=== PATIENT | male | born 2000 | race Caucasian/White ===

== ENCOUNTER 2022-07-03 09:20 | Emergency (ER) | payer BC, SELFPAY ==
--- NOTE | ~2022-07-03 | XR_ITS ---
EXAMINATION: XR tibia fibula RT 2V INDICATION: Right leg pain TECHNIQUE: Two views of the right tibia and fibula are obtained on three radiographs COMPARISON: 10/08/2018 FINDINGS: Bone alignment is normal. There is mild osseous irregularity of the medial malleolus. There is distal soft tissue swelling of the leg and ankle. IMPRESSION: 1. Mild osseous irregularity of the medial malleolus which could reflect acute versus chronic injury. Dedicated ankle radiographs are recommended. Reviewed, dictated and finalized at location A.
[2022-07-03 09:20] VITALS: BP 123/78; PULSE 78; RESP 16; TEMP 36.8; O2SAT 98
--- NOTE | 2022-07-03 09:29 | ED.LOWEXIN ---
HPI - Extremity Injury (Lower) General Chief Complaint: Extremity Injury, Lower Stated Complaint: right coleman injury Time Seen by Provider: 07/03/22 09:29 Source: patient Mode of arrival: ambulatory Limitations: no limitations History of Present Illness HPI Narrative: 22-year-old male presents to the ER after he hit his right coleman with a sledgehammer 3 days ago. He was hitting a metal following which the jess a jumped and hit his right lower coleman. He has bruising of right lower coleman. He is able to bear weight but has pain when he walks and stands up. No other injuries noted. patient had an ankle sprain 3 years ago for which she was on crutches for a prolonged period of time. MD complaint: leg injury Onset (ago): day(s) ( Three days ago) Type of Injury: blunt Place: work Severity: moderate Exacerbating factors: weight bearing Context: direct blow Associated symptoms: swelling Other symptoms: none Related Data Allergies Allergy/AdvReac Type Severity Reaction Status Date / Time No Known Allergies Allergy Mild Unverified 04/13/08 10:33 Review of Systems Review of Systems: All systems reviewed & are unremarkable except as noted in HPI and below Constitutional: Constitutional: Reports as per HPI and Reports no additional constitutional complaints Eyes: Eyes: Reports as per HPI and Reports no additional eye complaints ENT: Reports system reviewed and no additional complaints, except as documented and Reports as per HPI Cardiovascular: Cardiovascular: Reports as per HPI and Reports no additional cardiovascular complaints Respiratory: Respiratory: Reports as per HPI and Reports no additional respiratory complaints Gastrointestinal: Gastrointestinal: Reports as per HPI and Reports no additional gastrointestinal complaints Genitourinary: Genitourinary: Reports no additional male genitourinary complaints and Reports as per HPI Musculoskeletal: Musculoskeletal: Reports no additional musculoskeletal complaints and Reports as per HPI Comments: coleman pain/ coleman bruising with swelling Integumentary/Breasts: Comments: bruising right lower coleman Neurologic: Reports system reviewed and no additional complaints, except as documented and Reports as per HPI Psychiatric: Psychiatric: Reports no additional psychiatric complaints and Reports as per HPI Endocrine: Endocrine: Reports no additional endocrine complaints and Reports as per HPI Hematologic/Lymphatic: Hematologic/Lymphatic: Reports no additional hematologic/lymphatic complaints and Reports as per HPI Allergic/Immunologic: Allergic/Immunologic: Reports no additional allergic/immunologic complaints and Reports as per HPI Exam Const: General: healthy appearing and no acute distress Nutritional Appearance: well nourished Orientation/consciousness: patient oriented x3 Limitations: no limitations HENMT: Head: normal to inspection Ears: external ears normal Face/Nose/Sinus: Normal external nose present Face and sinus: normal facial exam Mouth: Yes Normal oral and palatal mucosa present Throat: posterior oropharynx normal Eyes: Conjunctivae: conjunctivae normal Pupils: Equal, round and reactive pupils present EOM: EOMs intact bilaterally Direct Ophthalmoscopy: no photophobia Neck: Neck: normal visual inspection, no lymphadenopathy and no meningeal signs Chest: Chest palpation & inspection: normal inspection of the chest Resp: Effort & Inspection: normal respiratory effort Auscultation: clear to auscultation bilaterally Cardio: Rate: regular rate Rhythm: regular rhythm GI: GI Palp: Yes Soft to palpation Auscultation: normal bowel sounds Skin: General skin exam: normal color Other: bruising and swelling right lower leg/ coleman Neuro: General: patient oriented x3, moves all extremities, no meningeal signs, no focal motor deficits and CN's II-XI intact bilaterally Cranial nerves: Yes Nystagmus not present Speech: normal speech Gait exam (Neuro):
[2022-07-03 10:53] VITALS: BP 126/80; PULSE 80; RESP 20; TEMP 36.6; O2SAT 100
== END 2022-07-03 10:58 | disposition home or self-care (01) ==
PROVIDERS: Emergency Provider Internal Medicine Critical Care Medicine
DX: S82.51XA Displaced fracture of medial malleolus of right tibia, initial encounter for closed fracture (principal); W22.8XXA Striking against or struck by other objects, initial encounter
CPT/HCPCS: 73590; 99283

== ENCOUNTER 2022-08-02 16:41 | Outpatient (RCR) | payer BC, SELFPAY ==
--- NOTE | 2022-08-02 18:08 | PTOPEVAL1 ---
Assessment and note entered by Jorge Figueroa Evaluation Information Assessment Status Evaluation Diagnosis left shoulder dislocation Onset 07/02/22 Subjective Information Pt. reports that he injured the left shoulder while prying a track back on a skid steer. He reports that he was able to relocate the shoulder himself. He reports that he waited but ended up going to the doctor the following week. He reports that he has had xray which revealed fluid around the shoulder. he reports that most pain is located on the front side of the left shoulder. He is right hand dominant. He has no prior hx of shoulder problems. he reports he is able to continue full duty work despite his pain. He reports that picking up his new born will increase his pain, as well as pushing up off the left arm to get off the ground. He reports that his goal is to decrease his pain. Reported Pain Level Pain Score 2: Self Report Assessment PT Clinical Summary Pt. is a 22 year old male who enters the clinic with left shoulder pain following dislocation. He presents with shoulder stiffness, weakness and pain. continued skilled PT is indicated in order to improve these areas to allow the pt. to be able to complete all IADL's with less intense pain. Plan of Care Interventions Electrical Stimulation,Hot Pack/Cold Pack,Manual Therapy,Neuro Re-education,Patient/Caregiver Educati,Therapeutic Activities,Therapeutic Exercise PT Services Indicated Yes Treatment Frequency and 2x/week x 8 visits Duration These treatments will address the objective and functional deficits as defined above. The patient will be advanced safely and appropriately in order for the patient to progress towards his/her prior level of function. Additional exercises will be introduced and as well as a comprehensive home exercise program upon discharge, if needed, ?to ensure carryover of functional gains achieved in the clinic. This treatment plan has been reviewed and agreement upon by the patient.
--- NOTE | 2022-08-02 18:09 | OPREHPOC ---
Outpatient Therapy Plan of Care This is a Multidisciplinary Plan of Care that may contain components documented by all disciplines (PT, OT, and ST.) PT Problem 1 PT Problem #1 Knowledge Deficit PT Goal 1 Goal Indpendent with a HEP addressing strength and mobility Target Visit 2 PT Problem 2 PT Problem #2 Impaired Strength PT Goal 1 Goal Presents with 5/5 ER strength at the left shoulder Target Visit 8 PT Problem 3 PT Problem #3 Impaired Range of Motion PT Goal 1 Goal Present with 90 degrees left shoulder ER AROM Target Visit 8 PT Problem 4 PT Problem #4 Impaired Functional Mobil PT Goal 1 Goal Perform all work related duties and overhead tasks without pain. Target Visit 8
--- NOTE | 2022-08-18 16:49 | PTOPDC ---
Assessment and note entered by JT File, PT Evaluation Information Assessment Status Discharge Diagnosis left shoulder dislocation Onset 07/02/22 Subjective Information patient reports he feels good today. he reports he has no pain, and he is ready for DC. Reported Pain Level Pain Score 0: Self Report Assessment PT Clinical Summary mr. duke has met all goals for skilled PT. he wishes to be done with therapy today. given his lack of pain, achievement of goals, and full return to work duties without limitations he will be DC'd from skilled PT services today. Plan of Care PT Services Indicated Yes
--- NOTE | 2022-08-18 16:49 | OPREHPOC ---
Outpatient Therapy Plan of Care This is a Multidisciplinary Plan of Care that may contain components documented by all disciplines (PT, OT, and ST.) PT Problem 1 PT Problem #1 Knowledge Deficit PT Goal 1 Goal Indpendent with a HEP addressing strength and mobility Target Visit 2 Progress Met PT Problem 2 PT Problem #2 Impaired Strength PT Goal 1 Goal Presents with 5/5 ER strength at the left shoulder Target Visit 8 Progress Met PT Problem 3 PT Problem #3 Impaired Range of Motion PT Goal 1 Goal Present with 90 degrees left shoulder ER AROM Target Visit 8 Progress Met PT Problem 4 PT Problem #4 Impaired Functional Mobil PT Goal 1 Goal Perform all work related duties and overhead tasks without pain. Target Visit 8 Progress Met
== END 2022-08-18 16:52 | disposition home or self-care (01) ==
LOC: CHSPT 16:41
PROVIDERS: Visit Provider Nurse Practitioner Family
DX: S43.005D Unspecified dislocation of left shoulder joint, subsequent encounter (principal)
CPT/HCPCS: 97014; 97110; 97161; G0283

== ENCOUNTER 2022-11-19 11:52 | Outpatient (CLI) | payer BC, SELFPAY ==
--- NOTE | ~2022-11-19 | XR_ITS ---
XR chest 2V DATE: 11/19/2022 12:19 INDICATION: Shortness of breath, cough. History of asthma. Smoker. TECHNIQUE: PA and lateral views COMPARISON: 12/14/2010 PA and lateral chest FINDINGS: There is patchy infiltrate in the left lower lobe and to a lesser extent right lower lung s uggesting bilateral pneumonia. Normal heart size. No hilar or mediastinal enlargement. No pulmonary vascular congestion or pleural effusion or pneumothorax. IMPRESSION: Patchy bilateral lower lung infiltrates, most prominent in the left lower lobe, suggestin g bilateral pneumonia Reviewed, dictated and finalized at location B. IMPRESSION: Patchy bilateral lower lung infiltrates, most prominent in the left lower lobe, suggesting bilateral pneumonia
[2022-11-19 12:09] LABS: Basophils Absolute Auto 0.04 K/mm3 (0.00-0.10); Basophils Percent Auto 0.3 % (0.0-1.0); Hematocrit 41.8 % (40.0-54.0); Hemoglobin 14.5 g/dL (14.0-18.0); Immature Granulocyte Absolute 0.06 K/mm3 (0.00-0.00); Immature Granulocyte Percent A 0.4 % (0.0-0.0); Lymphocytes Absolute Auto 1.04 K/mm3 (1.10-4.50); Lymphocytes Percent Auto 7.1 % (18.0-42.0); Mean Corpuscular HGB Conc 34.7 g/dL (32.0-36.0); Mean Corpuscular Hemoglobin 29.8 pg (27.0-31.0); Mean Platelet Volume 9.3 fl (8.7-11.0); Monocytes Absolute Auto 1.04 K/mm3 (0.10-0.90); Monocytes Percent Auto 7.1 % (2.0-11.0); Neutrophils Absolute Auto 12.4 K/mm3 (1.7-7.2); Neutrophils Percent Auto 85.1 % (50.0-70.0); Platelet Count Result 281 K/mm3 (150-420); Red Blood Count 4.86 M/mm3 (4.70-6.10); Red Cell Distribution Width 12.6 % (11.6-14.4); White Blood Count 14.6 K/mm3 (4.8-10.8)
== END 2022-11-19 11:53 | disposition home or self-care (01) ==
LOC: CHSLAB 11:55
PROVIDERS: PCP Family Medicine; Visit Provider Physician Assistant
DX: J06.9 Acute upper respiratory infection, unspecified (principal); R91.8 Other nonspecific abnormal finding of lung field
CPT/HCPCS: 36415; 71046; 85025

== ENCOUNTER 2022-11-19 14:36 | Emergency (ER) | payer BC, SELFPAY ==
[2022-11-19] VITALS (17 sets, daily range): BP systolic 117–140; BP diastolic 73–89; PULSE 88–93; RESP 18; TEMP 37.2; O2SAT 93–97
[2022-11-19 15:10] LABS: Basophils Absolute Auto 0.03 K/mm3 (0.00-0.10); Basophils Percent Auto 0.2 % (0.0-1.0); Hematocrit 40.1 % (40.0-54.0); Hemoglobin 13.9 g/dL (14.0-18.0); Immature Granulocyte Absolute 0.06 K/mm3 (0.00-0.00); Immature Granulocyte Percent A 0.4 % (0.0-0.0); Lymphocytes Absolute Auto 0.98 K/mm3 (1.10-4.50); Lymphocytes Percent Auto 7.2 % (18.0-42.0); Mean Corpuscular HGB Conc 34.7 g/dL (32.0-36.0); Mean Corpuscular Volume 86.4 fL (78.0-102.0); Mean Platelet Volume 9.4 fl (8.7-11.0); Monocytes Percent Auto 5.9 % (2.0-11.0); Neutrophils Absolute Auto 11.7 K/mm3 (1.7-7.2); Neutrophils Percent Auto 86.3 % (50.0-70.0); Platelet Count Result 289 K/mm3 (150-420); Red Blood Count 4.64 M/mm3 (4.70-6.10); Red Cell Distribution Width 12.7 % (11.6-14.4); White Blood Count 13.5 K/mm3 (4.8-10.8)
--- NOTE | 2022-11-19 15:19 | ED.SOB ---
HPI - SOB/Dyspnea General Chief Complaint: Shortness of Breath/Dyspnea Stated Complaint: cough; shortness of breath Time Seen by Provider: 11/19/22 14:42 Source: patient Mode of arrival: ambulatory Limitations: no limitations History of Present Illness HPI Narrative: patient is a 22-year-old with shortness of breath and cough and congestion for the past week. He was treated as bronchitis with albuterol and steroids earlier this week without change in got worse. Further he went to the doctor today and they did a chest x-ray which shows bilateral pneumonia and a CBC with an elevated WBC. He was sent to the emergency room for further evaluation and treatment. MD elicited complaint: shortness of breath Pertinent past history: asthma Onset (ago): week(s) (1) Context: recent illness Timing: constant Severity: moderate Exacerbating factors: coughing Relieving factors: nothing Known history of: asthma Associated symptoms: cough, sputum production and chest congestion Treatment prior to arrival: bronchodilator Related Data Home oxygen amount: none Home Medications Medication Instructions Recorded Confirmed albuterol sulfate 2.5 mg/3 mL 2.5 mg inhalation Q4-5H PRN 11/19/22 11/19/22 (0.083 %) solution for nebulization Wheezing albuterol sulfate 90 mcg/actuation 2 puff inhalation Q4-5H PRN 11/19/22 11/19/22 aerosol inhaler Wheezing prednisone 20 mg tablet 40 mg PO DAILY 11/19/22 11/19/22 Allergies Allergy/AdvReac Type Severity Reaction Status Date / Time No Known Allergies Allergy Mild Verified 11/19/22 14:51 Review of Systems Review of Systems: All systems reviewed & are unremarkable except as noted in HPI and below Constitutional: Constitutional: Reports no additional constitutional complaints Eyes: Eyes: Reports no additional eye complaints ENT: Reports system reviewed and no additional complaints, except as documented Cardiovascular: Cardiovascular: Reports no additional cardiovascular complaints Respiratory: Respiratory: Reports no additional respiratory complaints Gastrointestinal: Gastrointestinal: Reports no additional gastrointestinal complaints Genitourinary: Genitourinary: Reports no additional male genitourinary complaints Musculoskeletal: Musculoskeletal: Reports no additional musculoskeletal complaints Integumentary/Breasts: Skin/Breast: Reports system reviewed and no additional complaints, except as docu Neurologic: Reports system reviewed and no additional complaints, except as documented Psychiatric: Psychiatric: Reports no additional psychiatric complaints Endocrine: Endocrine: Reports no additional endocrine complaints Hematologic/Lymphatic: Hematologic/Lymphatic: Reports no additional hematologic/lymphatic complaints Allergic/Immunologic: Allergic/Immunologic: Reports no additional allergic/immunologic complaints Exam Const: General: ill appearing ( Nontoxic) Nutritional Appearance: well nourished Orientation/consciousness: patient oriented x3 HENMT: Head: normal to inspection Ears: external ears normal Face/Nose/Sinus: Normal external nose present Eyes: Conjunctivae: conjunctivae normal Pupils: Equal, round and reactive pupils present EOM: EOMs intact bilaterally Neck: Neck: normal visual inspection Chest: Chest palpation & inspection: normal inspection of the chest Resp: Effort & Inspection: normal respiratory effort Auscultation: not clear to auscultation bilaterally, crackles bilateral and diffuse, no rales and rhonchi Cardio: Rate: regular rate Rhythm: regular rhythm Heart sounds: no murmurs GI: Inspection: non-distended GI Palp: Yes Soft to palpation and No Tenderness to palpation present (GI) Auscultation: normal bowel sounds : General: Yes bladder normal to palpation Back/Spine/Pelvis: Back: no CVA tenderness Skin: General skin exam: normal color Rashes: no rashes Wounds: no wounds Neuro: General: patient oriented x3 Cranial nerves: Yes Nystagmus n
[2022-11-19 15:25] LABS: Alanine Aminotransferase 17 U/L (16-63); Albumin Level 3.8 g/dL (3.4-5.0); Alkaline Phosphatase 74 U/L (46-116); Anion Gap 9 mmol/L (8-16); Aspartate Amino Transferase < 10 U/L (15-37); Bilirubin,Total 0.7 mg/dL (0.00-1.00); Blood Urea Nitrogen 9 mg/dL (7-18); Calcium 9.6 mg/dL (8.5-10.1); Carbon Dioxide 26 mmol/L (21-32); Chloride 104 mmol/L (98-108); D Dimer 0.19 mg/L (0.19-0.50); Estimated CRCL calculation 150 ml/min; Estimated Glomerular Filt Rate > 60; Glucose 123 mg/dL (70-99); Osmolality Calculated 287 mOsm/kg (285-295); Potassium 3.5 mmol/L (3.5-5.1); Sodium 139 mmol/L (136-145); Total Protein 7.1 g/dL (6.4-8.2)
[2022-11-19 15:28] LABS: Lactic Acid Reflex 0.9 mmol/L (0.4-2.0)
[2022-11-19] MEDS: levoFLOXacin 750 MG/D5W 150 ML 750 MG/150 ML BAG 100 MG IVPB (15:45)
[2022-11-19 15:46] LABS: Influenza A QL RT-PCR Negative (Negative); Influenza B QL RT-PCR Negative (Negative); SARS-CoV-2 RNA PCR Negative (Negative)
[2022-11-19 15:49] LABS: RSV RNA, RT-PCR Negative (Negative)
--- NOTE | 2022-11-19 15:54 | PC.NURSE ---
PT IS SITTING ON STRETCHER WATCHING TV AT THIS TIME WITH IV MEDICATIONS INFUSING ORDERED WITHOUT DIFFICULTY. PT DENIES ANY NEEDS OR COMPLAINTS. PT IS AWAITING IV INFUSION FOR DECISION. PT REPORTS HE DOES NOT WANT TO BE ADMITTED. WILL CONTINUE TO MONITOR. NAD NOTED.
--- NOTE | 2022-11-19 16:36 | PC.NURSE ---
NO CHANGE IN PT STATUS. PT IS AWAITING IV COMPLETION. DENIES ANY NEEDS OR COMPLAINTS. WILL CONTINUE TO MONITOR.
--- NOTE | 2022-11-25 13:36 | PC.NURSE ---
final blood cultures x2 reviewed. no growth after 5 days, no change in plan of care
== END 2022-11-19 17:14 | disposition home or self-care (01) ==
PROVIDERS: Emergency Provider Emergency Medicine; PCP Family Medicine
DX: J18.9 Pneumonia, unspecified organism (principal); J45.909 Unspecified asthma, uncomplicated; Z79.51 Long term (current) use of inhaled steroids; Z20.822 Contact with and (suspected) exposure to COVID-19
CPT/HCPCS: 36415; 80053; 83605; 85025; 85380; 87040; 87637; 96365; 99284; J1956

== ENCOUNTER 2024-02-29 19:45 | Emergency (ER) | payer BC, SELFPAY ==
--- NOTE | ~2024-02-29 | XR_ITS ---
EXAMINATION: XR chest 1V 02/29/2024 20:37 INDICATION: Vomiting blood PROCEDURE: AP view of the chest COMPARISON: 11/19/2022 FINDINGS: The lungs are clear. The cardiomediastinal silhouette is within normal limits. There are no pleural effusions. There is no pneumothorax suspected. IMPRESSION: 1: NO ACUTE CARDIOPULMONARY DISEASE. Reviewed, dictated and finalized at location A. EAR ENGINEERING TECHNICIAN
--- NOTE | ~2024-02-29 | CT_ITS ---
EXAMINATION: CT chest abdomen pelvis w con DATE: 02/29/2024 20:42 [facility] INDICATION: Vomiting blood. History of esophageal tear. TECHNIQUE: Computed tomography (CT) of the chest, abdomen, and pelvis was performed with 100 cc Omnip aque 350 intravenous contrast. The dose-length product was 942.96 mGy-cm. COMPARISON: No prior studies for comparison. FINDINGS: CHEST CT: Heart size normal. No significant pleural or pericardial effusion. There is thickening of the distal esophagus and gastroesophageal junction. There is low-density fluid surrounding the distal esophagus and gastroesophageal junction, suspicious for perforation. No evidence for pneumothorax, pneumomedias tinum or free intraperitoneal air. No endobronchial lesions. ABDOMEN/PELVIS CT: The liver, spleen, adrenal glands and kidneys are unremarkable. Gallbladder is present. Colonic diver ticulosis without evidence for diverticulitis. There are nonenlarged retroperitoneal lymph nodes. Non obstructive bowel gas pattern. There are prominent varicosities in the right pelvis, nonspecific. Gal lbladder is contracted. There is a sclerotic lesion of the left femur proximally, likely benign bone island. No acute osseous abnormality. IMPRESSION: 1. Thickened distal esophagus and gastroesophageal junction with surrounding low density fluid, suspi cious for esophageal perforation. Differential diagnosis includes Boerhaave syndrome. Reviewed, dictated and finalized at location A. [facility] IMPRESSION: 1. Thickened distal esophagus and gastroesophageal junction with surrounding lo w density fluid, suspicious for esophageal perforation. Differential diagnosis includes Boerhaave syndrome.
[2024-02-29 19:47] VITALS: BP 155/90; PULSE 98; RESP 16; TEMP 36.6; O2SAT 100
--- NOTE | 2024-02-29 19:57 | ECG_ITS ---
Test Date: 2024-02-29 19:59:06 Measurements Intervals [place] Rate: 98 P: 8 [place]: 123 QRS: 66 QRSD: 109 T: 34 QT: 339 QTc: 434 Interpretive Statements SINUS RHYTHM No previous ECG available for comparison Electronically Signed On 03-01-2024 09:19:43 ENVIRONMENTAL ENGINEERING PROFESSOR by Osito Bailey M.D.
[2024-02-29 19:59] VITALS: RESP 16; O2SAT 99
[2024-02-29 20:11] LABS: Basophils Absolute Auto 0.1 K/mm3 (0.0-0.1); Basophils Percent Auto 0.9 % (0.2-1.2); Eosinophils Absolute Auto 0.3 K/mm3 (0-0.3); Eosinophils Percent Auto 3.3 % (0-4.4); Hematocrit 40.9 % (42.0-52.0); Hemoglobin 14.1 g/dL (14.0-18.0); Immature Granulocyte Absolute 0.03 K/mm3 (0.00-0.031); Immature Granulocyte Percent A 0.3 % (0-0.5); Lymphocytes Absolute Auto 2.89 K/mm3 (0.9-3.2); Lymphocytes Percent Auto 28.6 % (18.3-44.2); Mean Corpuscular HGB Conc 34.5 g/dl (32-36); Mean Corpuscular Hemoglobin 30.3 pg (26-34); Mean Platelet Volume 9.2 fl (7.4-10.4); Monocytes Absolute Auto 0.7 K/mm3 (0.1-0.6); Monocytes Percent Auto 6.7 % (2.6-8.5); Neutrophils Absolute Auto 6.1 K/mm3 (1.3-6.7); Neutrophils Percent Auto 60.2 % (45.5-73.1); Platelet Count Result 268 k/mm3 (150-375); Red Blood Count 4.65 M/mm3 (4.6-6.20); Red Cell Distribution Width 12.8 % (11.5-14.5); White Blood Count 10.1 K/mm3 (4.5-10.0)
[2024-02-29] MEDS: SODIUM CHLORIDE 0.9% IV 2,000 ML 999 ML IV CONT (20:13)
[2024-02-29] MEDS: HYDROmorphone HCL INJ (*CRX) 1 MG/ML SYR 0.5 MG IV PUSH (20:13)
[2024-02-29] MEDS: ONDANSETRON INJ 4 MG/2 ML VIAL IV PUSH (20:13)
[2024-02-29] MEDS: PANTOPRAZOLE SODIUM IV 40 MG VIAL 80 MG IV PUSH (20:13)
[2024-02-29 20:21] LABS: Fractional Inspired Oxygen 21 %; HCO3 VBG 22.6 mEq/l (24.0-30.0); PCO2 VBG 36.4 mmHg (42.0-48.0); PO2 VBG 43.5 mmHg (35.0-45.0)
[2024-02-29 20:24] LABS: Prothrombin Time 13.3 Seconds (11.1-14.7)
[2024-02-29 20:25] LABS: Device ROOM AIR
[2024-02-29 20:25] LABS: Partial Thromboplastin Time 25.8 Seconds (22.3-36.8)
[2024-02-29 20:28] LABS: Lactic Acid Reflex 1.9 mmol/L (0.7-2.0)
[2024-02-29 20:28] LABS: Ethanol < 10 mg/dL (<10)
[2024-02-29 20:28] LABS: Alanine Aminotransferase 30 U/L (6-50); Albumin Level 4.4 g/dL (3.5-5.1); Alkaline Phosphatase 75 U/L (38-126); Anion Gap 9 mmol/L (4-12); Aspartate Amino Transferase 31 U/L (17-59); Bilirubin,Total 0.4 mg/dL (0.2-1.3); Blood Urea Nitrogen 13 mg/dL (9-20); Carbon Dioxide 27 mmol/L (22-30); Chloride 104 mmol/L (98-107); Estimated CRCL calculation 151 ml/min; Estimated Glomerular Filt Rate > 60; Glucose 100 mg/dL (65-110); Lipase 108 U/L (23-300); Magnesium 1.8 mg/dL (1.6-2.3); Phosphorus 2.4 mg/dL (2.5-4.5); Potassium 3.8 mmol/L (3.4-5.0); Sodium 140 mmol/L (137-145)
[2024-02-29 20:34] LABS: Add Urine Microscopic? NO; Appearance Urine Clear (Clear); Bilirubin Urine Negative (Negative); Blood Urine Negative (Negative); Color Urine Yellow (Yellow); Glucose Urine UA Negative (Negative); Ketones Urine Negative (Negative); Leukocyte Esterase Ur Negative LEU/UL (Negative); Nitrate Urine Negative (Negative); Protein Urine Negative (Negative); Specific Grav Ur 1.018 (1.001-1.035); Urobilinogen Urine 0.2 mg/dL (<2.0); pH Urine 7.5 (5.0-9.0)
[2024-02-29 20:50] LABS: Amphetamine Screen Urine Negative (Negative); Barbiturate Screen Urine Negative (Negative); Benzodiazepines Screen Urine Negative (Negative); Cannabinoid Screen Urine Negative (Negative); Cocaine Screen Urine Positive (Negative); Methadone Screen Urine Negative (Negative); Opiate Screen Urine Negative (Negative); Phencyclidine Screen Urine Negative (Negative)
[2024-02-29 21:07] VITALS: BP 130/91; PULSE 88; RESP 15; O2SAT 100
--- NOTE | 2024-02-29 21:17 | PC.NURSE ---
EDP DR YOANA SOLO 1MG IVP DILAUDED.
[2024-02-29] MEDS: HYDROmorphone HCL INJ (*CRX) 1 MG/ML SYR IV PUSH (21:18)
[2024-02-29] MEDS: PIPERACILLN/TAZ 3.375GM/NS50ML 3.375 GM/50 ML BAG IVPB (21:39)
--- NOTE | 2024-02-29 21:50 | ED_ITS ---
HPI - General Adult General Chief complaint: Unspecified Stated complaint: VOMITING BLOOD; PMHx OF ESOPHAGEAL TEAR History of Present Illness HPI narrative: This is a 23-year-old male with history of esophageal perforation presenting with hematemesis. Patient was eating dinner 2 hours prior to arrival when he developed a sharp pain in the epigastric area and vomiting a small amount of bright red blood. He was then brought to the hospital for further evaluation. This time he is complaining of epigastric/chest pain and nausea. Denies fevers chills shortness breath. Related Data Home Medications ?Medication ?Instructions ?Recorded ?Confirmed ?Last Taken ?Type albuterol sulfate 2.5 mg/3 mL 2.5 mg inhalation Q4-5H PRN 11/19/22 11/19/22 Unknown History (0.083 %) solution for nebulization Wheezing albuterol sulfate 90 mcg/actuation 2 puff inhalation Q4-5H PRN 11/19/22 11/19/22 Unknown History aerosol inhaler Wheezing prednisone 20 mg tablet 40 mg PO DAILY 11/19/22 11/19/22 Unknown History Allergies Allergy/AdvReac Type Severity Reaction Status Date / Time No Known Allergies Allergy Mild Verified 11/19/22 14:51 Exam 2 Narrative: APPEARANCE: Patient appears uncomfortable Head: atraumatic. EYES: EOMI, NOSE: Atraumatic NECK: Trachea midline, no crepitus RESPIRATORY: No increased rate of breathing, clear to auscultation CARDIOVASCULAR: RRR, no peripheral edema ABDOMINAL: Epigastric tenderness MUSCULOSKELETAl: No obvious deformities NEURO: Alert. Moving 4/4 extremities SKIN:: Warm, dry. Normal color PSYCHIATRIC: Normal affect Course Vital Signs Vital signs: Vital Signs Temperature 98 F 02/29/24 19:47 Pulse Rate 98 02/29/24 19:47 Respiratory Rate 16 02/29/24 19:47 Blood Pressure 155/90 H 02/29/24 19:47 Pulse Oximetry 100 02/29/24 19:47 Oxygen Delivery Room Air 02/29/24 19:47 Temperature 98 F 02/29/24 19:47 Pulse Rate 88 02/29/24 21:07 Respiratory Rate 15 02/29/24 21:07 Blood Pressure 130/91 H 02/29/24 21:07 Pulse Oximetry 100 02/29/24 21:07 Oxygen Delivery Room Air 02/29/24 19:47 Medical Decision Making [facility] Narrative Medical decision making narrative: -Course: 23-year-old male presenting for epigastric pain and hematemesis. Patient's presentation and history concerning for esophageal rupture. We were unable to get a Gastrografin swallow test. CT chest and pelvis was obtained which showed thickening the distal esophagus and GE junction with surrounding fluid. This is concerning for esophageal rupture. Case was discussed with Dr. Wilkins from Cardiothoracic surgery at [facility]. Patient will be t/f ed to ed under Dr. Deluna. At time of transfer patient is stable. Patient given pain control antiemetics, pip/tazo, vancomycin fluconazole. Vital Signs Vital Signs: Vital Signs Temperature 98 F 02/29/24 19:47 Pulse Rate 98 02/29/24 19:47 Respiratory Rate 16 02/29/24 19:47 Blood Pressure 155/90 H 02/29/24 19:47 Pulse Oximetry 100 02/29/24 19:47 Oxygen Delivery Room Air 02/29/24 19:47 Temperature 98 F 02/29/24 19:47 Pulse Rate 88 02/29/24 21:07 Respiratory Rate 15 02/29/24 21:07 Blood Pressure 130/91 H 02/29/24 21:07 Pulse Oximetry 100 02/29/24 21:07 Oxygen Delivery Room Air 02/29/24 19:47 Lab Data 02/29/24 20:00 02/29/24 20:04 Labs: Lab Results 02/29/24 02/29/24 02/29/24 Range/Units 20:00 20:01 20:04 WBC 10.1 H (4.5-10.0) K/mm3 RBC 4.65 (4.6-6.20) M/mm3 Hgb 14.1 (14.0-18.0) g/dL Hct 40.9 L (42.0-52.0) % MCV 88.0 (80-100) fl MCH 30.3 (26-34) pg MCHC 34.5 (32-36) g/dl RDW 12.8 (11.5-14.5) % Plt Count 268 (150-375) k/mm3 MPV 9.2 (7.4-10.4) fl Immature Gran % (Auto) 0.3 (0-0.5) % Neut % (Auto) 60.2 (45.5-73.1) % Lymph % (Auto) 28.6 (18.3-44.2) % [place] % (Auto) 6.7 (2.6-8.5) % Eos % (Auto) 3.3 (0-4.4) % Baso % (Auto) 0.9 (0.2-1.2) % Lymph # (Auto) 2.89 (0.9-3.2) K/mm3 [place] # (Auto) 0.7 H (0.1-0.6) K/mm3 Eos # (Auto) 0.3 (0-0.3) K/mm3 Baso # (Auto) 0.1 (0.0-0.1) K/mm3 Abs Immat Gran (auto) 0.03 (0.00-0.031) K/mm3 Absolute Neuts (auto) 6.1 (1.3-6.7) K/mm3 Absolute Nucleated RBC 0.000 (0.0-0.012) K/mm3 Nucleated RBC % 0.0 (0.0-0.2) % PT 13.3 (11.1-14.7) Seconds INR 1.0 APTT 25.8 (22.3-36.8) Seconds Sodium 140 (137-145) mmol/L Potassium 3.8 (3.4-5.0) mmol/L Chloride 104 (98-107) mmol/L Carbon Dioxide 27 (22-30) mmol/L Anion Gap 9 (4-12) mmol/L BUN 13 (9-20) mg/dL Creatinine 0.68 L (0.7-1.3) mg/dL Estim Creat Clear Calc 151 ml/min Estimated GFR > 60 (59 - ) Glucose 100 (65-110) mg/dL Lactic Acid 1.9 (0.7-2.0) mmol/L Calcium 9.0 (8.4-10.2) mg/dL Phosphorus 2.4 L (2.5-4.5) mg/dL Magnesium 1.8 (1.6-2.3) mg/dL Total Bilirubin 0.4 (0.2-1.3) mg/dL AST 31 (17-59) U/L ALT 30 (6-50) U/L Alkaline Phosphatase 75 (38-126) U/L Total Protein 7.0 (6.3-8.2) g/dL Albumin 4.4 (3.5-5.1) g/dL Lipase 108 (23-300) U/L Urine Color (Yellow) Urine Appearance (Clear) Urine pH (5.0-9.0) Ur Specific [place] (1.001-1.035) Urine Protein (Negative) mg/dL Urine Glucose (UA) (Negative) mg/dL Urine Ketones (Negative) mg/dL Ur Blood (Man) (Negative) Urine Nitrate (Negative) Urine Bilirubin (Negative) Urine Urobilinogen (<2.0) mg/dL Leukocyte Esterase Rfl (Negative) LUIS/UL Urine Opiates Screen (Negative) Urine Methadone Screen (Negative) Ur Barbiturates Screen (Negative) Ur Phencyclidine Scrn (Negative) Ur Amphetamine Screen (Negative) U Benzodiazepines Scrn (Negative) Urine Cocaine Screen (Negative) U Cannabinoids Screen (Negative) Ethyl Alcohol (<10) mg/dL Blood Type O Positive Antibody Screen Negative 02/29/24 02/29/24 Range/Units 20:05 20:18 WBC (4.5-10.0) K/mm3 RBC (4.6-6.20) M/mm3 Hgb (14.0-18.0) g/dL Hct (42.0-52.0) % MCV (80-100) fl MCH (26-34) pg MCHC (32-36) g/dl RDW (11.5-14.5) % Plt Count (150-375) k/mm3 MPV (7.4-10.4) fl Immature Gran % (Auto) (0-0.5) % Neut % (Auto) (45.5-73.1) % Lymph % (Auto) (18.3-44.2) % [place] % (Auto) (2.6-8.5) % Eos % (Auto) (0-4.4) % Baso % (Auto) (0.2-1.2) % Lymph # (Auto) (0.9-3.2) K/mm3 [place] # (Auto) (0.1-0.6) K/mm3 Eos # (Auto) (0-0.3) K/mm3 Baso # (Auto) (0.0-0.1) K/mm3 Abs Immat Gran (auto) (0.00-0.031) K/mm3 Absolute Neuts (auto) (1.3-6.7) K/mm3 Absolute Nucleated RBC (0.0-0.012) K/mm3 Nucleated RBC % (0.0-0.2) % PT (11.1-14.7) Seconds INR APTT (22.3-36.8) Seconds Sodium (137-145) mmol/L Potassium (3.4-5.0) mmol/L Chloride (98-107) mmol/L Carbon Dioxide (22-30) mmol/L Anion Gap (4-12) mmol/L BUN (9-20) mg/dL Creatinine (0.7-1.3) mg/dL Estim Creat Clear Calc ml/min Estimated GFR (59 - ) Glucose (65-110) mg/dL Lactic Acid (0.7-2.0) mmol/L Calcium (8.4-10.2) mg/dL Phosphorus (2.5-4.5) mg/dL Magnesium (1.6-2.3) mg/dL Total Bilirubin (0.2-1.3) mg/dL AST (17-59) U/L ALT (6-50) U/L Alkaline Phosphatase (38-126) U/L Total Protein (6.3-8.2) g/dL Albumin (3.5-5.1) g/dL Lipase (23-300) U/L Urine Color Yellow (Yellow) Urine Appearance Clear (Clear) Urine pH 7.5 (5.0-9.0) Ur Specific [place] 1.018 (1.001-1.035) Urine Protein Negative (Negative) mg/dL Urine Glucose (UA) Negative (Negative) mg/dL Urine Ketones Negative (Negative) mg/dL Ur Blood (Man) Negative (Negative) Urine Nitrate Negative (Negative) Urine Bilirubin Negative (Negative) Urine Urobilinogen 0.2 (<2.0) mg/dL Leukocyte Esterase Rfl Negative (Negative) LUIS/UL Urine Opiates Screen Negative (Negative) Urine Methadone Screen Negative (Negative) Ur Barbiturates Screen Negative (Negative) Ur Phencyclidine Scrn Negative (Negative) Ur Amphetamine Screen Negative (Negative) U Benzodiazepines Scrn Negative (Negative) Urine Cocaine Screen Positive A (Negative) U Cannabinoids Screen Negative (Negative) Ethyl Alcohol < 10 (<10) mg/dL Blood Type Antibody Screen ABG Data ABG results: 02/29/24 20:05 VBG pH 7.410 H* VBG pCO2 36.4 L VBG pO2 43.5 VBG HCO3 22.6 L O2 Delivery Device Room air O2 Liters/Min Not Reportable FiO2 21 Critical Care Time Critical Care Time Critical Care Time: Yes Total Critical Care Time: 35 Discharge Plan Discharge Clinical Impression: Hematemesis, Esophageal rupture Patient Disposition: Home, Self-Care Condition: Stable Instructions: Antibiotic Form Patient Language: Swedish Prescriptions: No Action albuterol sulfate 2.5 mg /3 mL (0.083 %) solution for nebulization 2.5 mg inhalation Q4-5H PRN (Reason: Wheezing) prednisone 20 mg tablet 40 mg PO DAILY albuterol sulfate 90 mcg/actuation HFA aerosol inhaler 2 puff INHALATION Q4-5H PRN (Reason: Wheezing) levofloxacin 750 mg tablet 750 mg PO DAILY 7 Days Qty: 7 0RF Follow-up/Referrals: Mary Jo Yi MD [Primary Care Provider] -
[2024-02-29] MEDS: VANCOMYCIN 1,500 MG/NS 500 ML 1,500 MG/500 ML BAG 250 MG IVPB (22:26)
[2024-02-29 22:35] VITALS: BP 131/88; PULSE 104; RESP 16; O2SAT 97
== END 2024-02-29 22:37 | disposition short-term general hospital (02) ==
PROVIDERS: Emergency Provider Emergency Medicine; PCP Family Medicine
DX: K22.3 Perforation of esophagus (principal)
CPT/HCPCS: 36415; 71045; 71260; 74177; 80053; 80307; 81003; 82077; 82803; 83605; 83690; 83735; 84100; 85025; 85610; 85730; 86850; 86900; 86901; 93005; 96365; 96366; 96367; 96375; 96376; 99285; J1171; J1450; J2405; J2470; J2543; J3370; J7030; Q9967